=== PATIENT | female | born 1990 | race Hispanic/Latino ===

== ENCOUNTER 2021-03-01 11:21 | Emergency (ER) | payer SELFPAY ==
[2021-03-01 11:40] VITALS: BP 117/64
--- NOTE | 2021-03-01 12:04 | Emergency Department Report ---
ED General Adult HPI - General Chief complaint: Upper Respiratory Infection Stated complaint: COUGH/RUNNING NOSE/CHEST PAIN Time Seen by Provider: 03/01/21 11:59 Source: patient, EMS Mode of arrival: Stretcher Limitations: No Limitations - History of Present Illness Initial comments: 30-year-old female patient presents to the emergency department with complaints of nasal congestion and nonproductive cough for 2 days. Patient may have been exposed to sick contacts at work. No medications prior to arrival. No current steroid or antibiotic use. No recent travel. Denies fever, chills, ear pain, wheezing, vomiting, diarrhea, rash, neck stiffness. Denies all other complaints at this time. - Related Data Previous Rx's Medication Instructions Recorded Last Taken Type Brompheniramine/Pseudoephed/Dm 10 ml PO Q4H #1 bottle 03/01/21 Unknown Rx [Bromfed Dm Cough Syrup] Allergies Allergy/AdvReac Type Severity Reaction Status Date / Time No Known Allergies Allergy Unverified 03/01/21 11:37 ED Review of Systems ROS: Stated complaint: COUGH/RUNNING NOSE/CHEST PAIN Other details as noted in HPI Other: GENERAL: Negative for fever, chills, weight change, anorexia, fatigue. ENT: Positive for cough and nasal congestion. CARDIOVASCULAR: Negative for chest pain, palpitations, lower extremity swelling. PULMONARY: Negative for cough, dyspnea, wheezing, orthopnea, cyanosis. GASTROINTESTINAL: Negative for abdominal pain, nausea, vomiting, diarrhea, constipation. MUSCULOSKELETAL: Negative for joint pain, joint swelling, myalgias, back pain, neck pain. NEUROLOGICAL: Negative for headache, seizure, syncope, paresthesias, weakness. INTEGUMENTARY: Negative for erythema, rash, diaphoresis, laceration, ecchymosis. HEMATOLOGICAL: Negative for hemoptysis, hematemesis, hematochezia, hematuria. PSYCHIATRIC: Negative for hallucinations, suicidal ideation, homicidal ideation, anxiety, depression. ED Past Medical Hx - Past Medical History Previous Medical History?: Yes Hx Seizures: Yes - Surgical History Past Surgical History?: No - Social History Smoking Status: Current Every Day Smoker Substance Use Type: Alcohol - Medications Home Medications: Home Medications Medication Instructions Recorded Confirmed Last Taken Type Brompheniramine/Pseudoephed/Dm 10 ml PO Q4H #1 bottle 03/01/21 Unknown Rx [Bromfed Dm Cough Syrup] ED Physical Exam - General Limitations: No Limitations - Other Other exam information: General: Awake and alert. No acute distress. Head: Atraumatic, normocephalic. No sinus tenderness. Eyes: EOMI. Pupils are equal and round. Normal sclera and conjunctiva. ENT: Nasal congestion present. Oral mucosa is moist. Pharyngeal erythema without exudate or tonsillar swelling. Uvula is midline and nonedematous. Neck: Supple. No lymphadenopathy. Pulmonary: Nonproductive cough noted on exam. No respiratory distress. Clear to auscultation bilaterally. Cardiac: Regular rate and rhythm. Pulses are palpable and equal bilaterally. No lower extremity cyanosis or edema. Skin: Warm and dry. No rashes. Abdomen: Soft, non-tender, non-protuberant. No guarding, rigidity, or rebound. Bowel sounds are normal. No organomegaly or masses noted. Back: Normal alignment. No CVA tenderness. Extremities: Symmetrical. Full range of motion intact. Neurological: Alert and oriented, appropriately interactive, no focal deficits. Psych: Cooperative. Appropriate mood and affect. Speech is evenly metered. Thoughts are logically construed. ED Course Vital Signs 03/01/21 11:38 Temperature 98.4 F Pulse Rate 86 Respiratory 20 Rate Blood Pressure 117/64 O2 Sat by Pulse 98 Oximetry ED Medical Decision Making - Medical Decision Making Differential diagnosis including but not limited to: pneumonia, influenza, sinusitis, pharyngitis, viral upper respiratory infection Patient presents to the ED w/ complaints of cough and congestion. She is afebrile. Vital signs are stable. No hypoxia, no respiratory distress. History and exam findings suggestive of viral upper respiratory infection; no clinical indication for further diagnostic work-up on an emergent basis at this time. Patient will be discharged home with appropriate symptomatic treatment and referred to primary care provider for close outpatient follow-up. Patient expressed understanding and is agreeable to plan of care. Disease transmission precautions discussed. Strict return precautions provided. Repeat exam is unremarkable and benign. History, exam, diagnostic testing, and current condition do not suggest worrisome pathology to warrant further testing, continued ED treatment, admission, or surgical evaluation at this point. Given the low probability of a significant medical illness, it would be more likely to result in harm than benefit to perform further testing at this stage. Discussed findings, presumptive diagnosis, need for follow-up and specific signs/symptoms that should prompt immediate return to the emergency department. Instructions were explained in detail to the patient in addition to giving written discharge information. Patient expressed understanding and was given the opportunity to ask questions, all of which were satisfactorily answered prior to discharge home. Critical care attestation.: If time is entered above; I have spent that time in minutes in the direct care of this critically ill patient, excluding procedure time. ED Disposition Clinical Impression: Viral upper respiratory tract infection with cough Disposition: TO HOME OR SELFCARE Is pt being admited?: No Does the pt Need Aspirin: No Condition: Stable Instructions: Upper Respiratory Infection, Adult, [id number] Additional Instructions: Take Bromfed as directed. Honey is an excellent natural cough suppressant. Rest. Drink plenty of fluids. Wash hands frequently to prevent disease transmission. Do not share food or drinks with others. Follow-up with primary care provider this week. Call today to schedule an appointment. See referral information below. Return to the emergency department immediately for new or worsening symptoms. Prescriptions: Brompheniramine/Pseudoephed/Dm [Bromfed Dm Cough Syrup] 10 ml PO Q4H #1 bottle Referrals: RAY ALY MD [Staff Physician] - 3-5 Days [facility] [Provider Group] - 3-5 Days Forms: Work/School Release Form(ED) Time of Disposition: 12:04
== END 2021-03-01 12:20 | disposition home or self-care (01) ==
LOC: ED 11:21
DX: J06.9 Acute upper respiratory infection, unspecified (principal); B97.89 Other viral agents as the cause of diseases classified elsewhere; F17.200 Nicotine dependence, unspecified, uncomplicated; Z86.69 Personal history of other diseases of the nervous system and sense organs; Z72.89 Other problems related to lifestyle; Z79.899 Other long term (current) drug therapy
CPT/HCPCS: 99283